=== PATIENT | male | born 1970 | race Caucasian/White ===

== ENCOUNTER 2016-10-27 15:39 | Inpatient (IN) | payer OTHER ==
--- NOTE | ~2016-10-27 | CO ---
Unit #: [id number] #: [id number] Patient: SANDY NORMAN [id number] [facility] [address] [place] [address] [id number] I MR#: [id number] NAME: SANDY NORMAN ROOM: [facility] Age: 46 Sex: M Admission Date: 10/27/2016 : 1970 Attending Physician: Thad Jamison M.D. Primary Care Physician: Generic Doctor Not In System Consultation Date: 10/28/2016 CONSULTATION REPORT Note, the patient was seen for his admission H and P on 10/28/2016. His bilateral ear infection was addressed, and treatment was outlined. Please see H and P dated 10/28/2016. Dictated by... Tamara Hirsch P.A.-C. for Lourdes Johnson/wing TD: 10/29/2016 01:33 JOB #: [id number] CONSULTATION REPORT Page 1 of 1 X Tamara Hirsch CONSULTATION REPORT
--- NOTE | ~2016-10-27 | PA ---
Unit #: [id number] #: [id number] Patient: SANDY NORMAN [id number] [facility] [address] [place] [address] [id number] MR#: [id number] NAME: SANDY NORMAN ROOM: [facility] Age: 46 Sex: M Admission Date: 10/27/2016 : 1970 Date of Assessment: 10/28/2016 Attending Physician: Thad Jamison M.D. Admitting Physician: Thad Jamison M.D. Primary Care Physician: Generic Doctor Not In System PSYCHIATRIC ASSESSMENT IDENTIFYING INFORMATION The patient is a 46-year-old white male admitted to the [facility] with increasing alcohol use and suicidal ideation. CHIEF COMPLAINT None given. INFORMANT(S) Patient, reliability is good. HISTORY OF PRESENT ILLNESS The patient is a 46-year-old single white male admitted to the [facility] after he had presented to the [facility] in [place] voicing positive suicidal ideation with plan to jump from an overpass. The patient reports no prior suicide attempts or gestures. He reports multiple stressors including recently having lost his job. He also reports estrangement from his family and concerns about his father's health are areas of concern. The patient has a degree in accounting from the [employer] and is scheduled to begin a new job a week from Tuesday. He exhibits some future orientation related thereto. The patient reports that he has been on Lexapro 60 mg daily for "the past 8 years." He reports increasing alcohol use and does have concern regarding this decreased alcohol use though he states that he is concerned that he will have any symptoms of withdrawal given the fact that he has not used alcohol since Tuesday. He denies abuse of other psychoactive substances apart from occasional cannabis. He complains of lack of energy and lack of motivation and some recent loss of sleep. He denies any appetite changes. PAST PSYCHIATRIC HISTORY As above. PAST MEDICAL HISTORY The patient has a current ear infection. MEDICATIONS Amoxicillin. ALLERGIES None reported FAMILY HISTORY Noncontributory. Unit #: [id number] #: [id number] Patient: SANDY NORMAN SOCIAL HISTORY The patient currently lives with a roommate. 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 The patient reports alcohol use as noted previously, and he does not smoke cigarettes. MENTAL STATUS EXAMINATION Examination at this time reveals the patient to be a well-developed well-nourished white male appearing stated age. He is in no apparent physical distress at the time of examination. He is awake, alert, and oriented in all spheres. His mood is dysphoric, his affect congruent. Speech is generally well-coherent. There are no gross deficits in memory or cognition noted. Intelligence is judged to be in the average range based on fund of knowledge. The patient is cooperative throughout the interview. He continues to endorse positive suicidal ideation. He denies homicidal ideation. He denies any psychotic symptoms. His judgment and insight appeared to be intact. ASSETS AND LIABILITIES The patient's assets: Motivation for change. Liabilities: Lack of resources. DIAGNOSTIC IMPRESSION 1. Major depressive disorder, recurrent, moderate. 2. Alcohol use disorder. TREATMENT PLAN The patient remains hospitalized for safety and stabilization. We will transfer him to the [facility] or [address] [place] [address] Unit so that the patient may participate in chemical dependence programming as he has been on a dose of Celexa that exceeds FDA-mandated dosing guidelines. I will discontinue this medication and instead begin the patient on Lexapro with an effective increased dose of 20 mg daily. The patient will participate in appropriate order of milieu activities. His suicide precautions are of course in place. ESTIMATED LENGTH OF STAY 4 days. Dictated by... Thad Jamison M.D. TRINH/joslyn TD: 10/28/2016 12:45 JOB #: [id number] Unit #: [id number] #: [id number] Patient: SANDY NORMAN PSYCHIATRIC ASSESSMENT Page 1 of 1 X Thad Jamison MD X PSYCHIATRIC ASSESSMENT
--- NOTE | ~2016-10-27 | PN ---
Unit #: [id number] #: [id number] Patient: SANDY NORMAN [id number] [facility] [address] [place] [address] [id number] MR#: [id number] NAME: SANDY NORMAN ROOM: [facility] Age: 46 Sex: M Admission Date: 10/27/2016 : 1970 Attending Physician: Thad Jamison M.D. Admitting Physician: Thad Jamison M.D. Primary Care Physician: Generic Doctor Not In System [facility] PROGRESS NOTES DATE 10/29/2016 DISCUSSION The patient is abed resting comfortably today. He is continuing to exhibit some symptoms of fairly significant alcohol withdrawal and has required several doses of p.r.n. of Ativan. Dictated by... Thad Jamison M.D. CB/landon TD: 10/29/2016 21:30 JOB #: [id number] [facility] PROGRESS NOTES Page 1 of 1 X Thad Jamison MD X PROGRESS NOTE
--- NOTE | ~2016-10-27 | DS ---
Unit #: [id number] #: [id number] Patient: SANDY NORMAN [id number] [facility] [address] [place] [address] [id number] I MR#: [id number] NAME: SANDY NORMAN ROOM: [facility] Age: 46 Sex: M Admission Date: 10/27/2016 : 1970 Discharge Date: 10/31/2016 Attending Physician: Thad Jamison M.D. Primary Care Physician: Generic Doctor Not In System DISCHARGE SUMMARY REASON FOR ADMISSION The patient is a 46-year-old white male, admitted to the hospital with increasing depression and suicidal ideation as well as increasing abuse of alcohol. HOSPITAL COURSE The patient was admitted initially to the [address] [place] [address] unit, but was transferred to the [facility] unit. He had been on 60 mg of citalopram daily, but this medication was discontinued as his dose was outside FDA mandated parameters and he was instead begun on Lexapro 20 mg daily which he tolerated without complaint. His detox was uneventful one, though his participation within therapeutic milieu left much to be desired. By 10/31/2016, the patient was in bright spirits and requested discharge from the hospital. He was bright euthymic and future oriented at that point and vehemently denied suicidal ideation. Discharge was ordered. FINAL DIAGNOSES Alcohol use disorder; major depressive disorder, recurrent, moderate; upper respiratory infection. DISPOSITION ON DISCHARGE The patient is discharged on the following medications: Trimox 500 mg two tablets b.i.d. until gone for upper respiratory infection; Lexapro 20 mg daily for depression. DISCHARGE INSTRUCTIONS No dietary or physical restrictions were placed upon the patient at the time of discharge. FOLLOWUP Followup will take place through the auspices of community mental health resources in the [place], [place] area. PROGNOSIS The patient's prognosis is considered fair. Dictated by... Thad Jamison M.D. TRINH/wing TD: 10/31/2016 19:14 Unit #: [id number] #: [id number] Patient: SANDY NORMAN JOB #: [id number] DISCHARGE SUMMARY Page 1 of 1 X Thad Jamison MD X DISCHARGE SUMMARY
--- NOTE | ~2016-10-27 | HP ---
Unit #: [id number] #: [id number] Patient: MARC NORMAN [id number] [facility] [address] [place] [address] [id number] I MR#: [id number] NAME: MARC NORMAN ROOM: [facility] Age: 46 Sex: M Admission Date: 10/27/2016 : 1970 Attending Physician: Thad Jamison M.D. Admitting Physician: Thad Jamison M.D. Primary Care Physician: Generic Doctor Not In System HISTORY AND PHYSICAL HISTORY OF PRESENT ILLNESS Marc is a 46 year old admitted to [address] [place] [address] because of his abuse of alcohol, increased depression and after verbalizing wanting to hurt himself. PAST MEDICAL HISTORY History of increased alcohol use. PAST SURGICAL HISTORY Nothing reported. ALLERGIES No known drug allergies. SOCIAL HISTORY Smokes less than 1 pack per day. Drinks alcohol 3 to 4 times a week and admits to using marijuana on occasion. FAMILY HISTORY Medically noncontributory. REVIEW OF SYSTEMS CONSTITUTIONAL: No fever or chills. HEENT: Patient was diagnosed recently with an ear infection. He has been started on amoxicillin. CARDIOVASCULAR: Denies chest pain, irregular heart rhythm or palpitations. CHEST: Denies shortness of breath or cough. No hemoptysis. GASTROINTESTINAL: Denies nausea, vomiting, diarrhea or chronic constipation. ENDOCRINE: Denies history of increased thirst or urination. No recent significant weight loss or gain. GENITOURINARY: Denies dysuria, frequency, or hematuria. SKIN: Denies any rashes. HEMATOLOGIC: Denies history of increased bleeding or bruising. MUSCULOSKELETAL: Denies any hot, swollen joints. No generalized muscle pain. NEUROLOGIC: Denies problems with vision or speech. No frequent, severe headaches. No numbness, tingling or weakness in any extremities. Denies loss of bladder or bowel control. CURRENT MEDICATIONS Detox protocol. Unit #: [id number] #: [id number] Patient: MARC NORMAN PHYSICAL EXAMINATION GENERAL: Alert, well-nourished, in no apparent distress. VITAL SIGNS: Blood pressure 172/100, heart rate 100, respirations 16, temperature 98.6. WEIGHT: 196. HEIGHT: 6 feet 2 inches. SKIN: Warm and dry without rash or lesion. HEENT: Normocephalic. TMs not viewed (battery in otoscope). There is a small amount of dried serosanguineous fluid from the left ear. NECK: Supple without lymphadenopathy or thyromegaly. HEART: Regular rate and rhythm without murmur. LUNGS: Clear. ABDOMEN: Soft, nontender. : Not done. EXTREMITIES: No evidence of cyanosis, clubbing or edema. Moves all without focal deficit. NEUROLOGICAL: Grossly within normal limits. Cranial Nerves: II: Visual ayoub are intact. III, IV AND : Extraocular movements are intact. Pupils are equal, round and reactive to light. V: Facial sensation is grossly normal. VII: Facial movements and expression are normal. VIII: Auditory acuity grossly intact. IX, X: Uvula is midline. Phonation is normal. XI: Patient shrugs shoulders and turns head normally. XII: Tongue protrudes in the midline. Sensory and Motor Function: Sensory and motor sensation is grossly normal. Motor: moves all extremities well. Coordination: Gait is normal. Deep Tendon Reflexes: Intact. IMPRESSION 1. Psychiatric admission. 2. Alcohol abuse. 3. Patient was recently diagnosed with bilateral ear infection. He has been started on amoxicillin but I do not see where this was continued at time of admission. RECOMMENDATIONS PSYCHIATRIC: Per psychiatrist. MEDICAL: 1. See no contraindications to participate in facility's activities. 2. Detox per protocol. 3. Resume amoxicillin 500 mg 1 p.o. t.i.d. x7 days. Dictated by... Tamara Hirsch P.A.-C. for Lourdes Johnson/joelle TD: 10/28/2016 15:05 JOB #: [id number] Unit #: [id number] #: [id number] Patient: MARC NORMAN HISTORY AND PHYSICAL Page 1 of 1 X Tamara Hirsch HISTORY AND PHYSICAL
--- NOTE | ~2016-10-27 | PN ---
Unit #: [id number] #: [id number] Patient: SANDY NORMNA [id number] [facility] [address] [place] [address] [id number] MR#: [id number] NAME: SANDY NORMAN ROOM: [facility] Age: 46 Sex: M Admission Date: 10/27/2016 : 1970 Attending Physician: Thad Jamison M.D. Admitting Physician: Thad Jamison M.D. Primary Care Physician: Generic Doctor Not In System [facility] PROGRESS NOTES DATE 10/30/2016 DISCUSSION The patient is abed today. His detox has continued uneventfully, and he is reporting reduction in suicidal ideation. He is requesting probable a.m. discharge. Dictated by... Thad Jamison M.D. TRINH/joslyn TD: 10/30/2016 14:47 JOB #: [id number] [facility] PROGRESS NOTES Page 1 of 1 X Thad Jamison MD X PROGRESS NOTE
[2016-10-28 09:39] LABS: BASOPHIL% 0.4 % (0-2.5); EOSINOPHIL# 0.2 X10e3 (0-0.7); EOSINOPHIL% 2.6 % (0.0-7.0); HEMATOCRIT 49.7 % (38.0-50.0); HEMOGLOBIN 16.9 gm/dL (13.0-16.0); LYMPHOCYTE# 1.1 X10e3 (1.0-3.5); MEAN CORPUSCULAR HEMOGLOBIN 32.9 PG (28-34); MEAN CORPUSCULAR HGB CONC 33.9 g/dL (30-36); MEAN PLATELET VOLUME 7.9 FL (6.5-11.5); MONOCYTE# 0.8 X10e3 (0-1.0); MONOCYTE% 11.5 % (3.0-12.0); NEUTROPHIL# 4.6 X10e3 (1.5-7.1); NEUTROPHIL% 69.5 % (40-75); PLATELET COUNT 157 X10e3 (140-420); RED BLOOD COUNT 5.13 X10e (3.90-5.60); RED CELL DISTRIBUTION WIDTH 14.2 % (11.0-15.5); WHITE BLOOD COUNT 6.6 X10e3 (4.0-10.5)
[2016-10-28 09:42] LABS: DIFF IND NO
[2016-10-28 10:16] LABS: ALBUMIN SERUM 3.6 g/dL (3.5-5.0); BILIRUBIN,TOTAL 1.1 mg/dL (0.2-2.0); BUN/CREATININE RATIO 6.25; CALCIUM SERUM 8.8 mg/dL (8.4-10.2); CREATININE SERUM 0.8 mg/dL (0.6-1.4); GLOM FILT RATE Estimated 107.2 mL/min (>60); POTASSIUM 4.2 mmol/L (3.5-5.1); PROTEIN TOTAL SERUM 6.2 g/dL (6.0-8.3)
[2016-10-29 09:40] LABS: URINE APPEARANCE CLEAR; URINE BILIRUBIN NEG (NEG); URINE BLOOD NEG (NEG); URINE COLOR YELLOW; URINE GLUCOSE NEG (NEG); URINE KETONE NEG (NEG); URINE LEUKOCYTE ESTERASE NEG (NEG); URINE NITRATE NEG (NEG); URINE PROTEIN NEG (NEG); URINE SPECIFIC GRAVITY 1.005 (1.003-1.035); URINE UROBILINOGEN 0.2 MG/DL (NEG)
[2016-10-29 10:16] LABS: AMPHETAMINE NEG (NEG); BARBITURATES NEG (NEG); BENZODIAZEPINES POS (NEG); COCAINE NEG (NEG); MARIJUANA POS (NEG); OPIATES NEG (NEG); TRICYCLIC ANTIDEPRESSANTS NEG (NEG); U METHADONE NEG (NEG)
== END 2016-10-31 13:48 | disposition home or self-care (01) | DRG 885 ==
LOC: P2L 15:39 → P1E 10-28 17:18
PROVIDERS: Specialist
PROC: HZ2ZZZZ Detoxification Services for Substance Abuse Treatment (ICD-10-PCS; principal; 2016-10-28)
DX: F33.1 Major depressive disorder, recurrent, moderate (principal); F10.10 Alcohol abuse, uncomplicated; F17.210 Nicotine dependence, cigarettes, uncomplicated; J06.9 Acute upper respiratory infection, unspecified
CPT/HCPCS: 80053; 80307; 81003; 85025; 86592